=== PATIENT | male | born 2000 | race American Indian/Alaskan Native ===

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

== ENCOUNTER 2018-11-03 10:40 | Emergency (ER) | payer BC ==
[2018-11-03 10:49] VITALS: BP 133/44
[2018-11-03] MEDS ORDERED: BOOSTRIX IM ONE (11:43)
--- NOTE | 2018-11-03 11:49 | Emergency Department Report ---
HPI - General Chief Complaint: Eye Problems Time Seen by Provider: 11/03/18 11:33 - HPI HPI: 18-year-old -[place] male presents to the emergency department with 2 complaints. First, the patient slipped 1 week ago and cut open his right hand on a rock. He has been covering the area with gauze and taping his hand. He denies any pain to the hand at this point. He is unsure of his last tetanus vaccination. His second complaint is some right upper eyelid irritation and swelling since he pulled out an eyelash a week or so ago. He denies any vision change, eye drainage, eye redness. He denies any past medical history. ED Past Medical Hx - Past Medical History Previous Medical History?: No - Surgical History Past Surgical History?: No - Social History Smoking Status: Former Smoker Substance Use Type: None - Medications Home Medications: Home Medications Medication Instructions Recorded Confirmed Last Taken Type Cephalexin [Keflex] 500 mg PO BID #14 capsule 11/24/16 Unknown Rx Ibuprofen [Motrin] 600 mg PO Q8H PRN #25 tablet 11/24/16 Unknown Rx Sulfamethoxazole/Trimethoprim 1 each PO BID #14 tablet 11/24/16 Unknown Rx [Bactrim DS TAB] Erythromycin [Erythromycin Ophth 1 applicatio OD Q6H #1 tube 11/03/18 Unknown Rx Oint] ED Review of Systems ROS: Stated complaint: RT HAND PAIN/RT EYE Other details as noted in HPI Comment: All other systems reviewed and negative Constitutional: denies: chills, fever Eyes: other (upper eyelid irritation). denies: eye pain, vision change ENT: denies: ear pain, throat pain Respiratory: denies: cough, shortness of breath Cardiovascular: denies: chest pain, palpitations Gastrointestinal: denies: abdominal pain, vomiting Genitourinary: denies: dysuria, discharge Musculoskeletal: arthralgia. denies: back pain, joint swelling Skin: denies: rash, lesions Neurological: denies: headache, weakness Physical Exam - Physical Exam Vital Signs: Vital Signs 11/03/18 10:46 Temperature 97.6 F Pulse Rate 54 L Respiratory 18 Rate Blood Pressure 133/44 O2 Sat by Pulse 100 Oximetry Physical Exam: GENERAL: The patient is well-developed well-nourished. HEENT: Normocephalic. Atraumatic. Patient has moist mucous membranes. EYES: Extraocular motions are intact. There is some mild redness and swelling to the right upper eyelid. NECK: Supple. Trachea is midline. CHEST/LUNGS: Clear to auscultation. There is no respiratory distress noted. HEART/CARDIOVASCULAR: Regular. There is no tachycardia. There is no obvious murmur. ABDOMEN:There is no abdominal distention. SKIN: Skin is warm and dry. There is a healing laceration between the second and third fingers. There is a callus to the palm just proximal to this laceration. NEURO: The patient is awake, alert, and oriented. The patient is cooperative. The patient has no focal neurologic deficits. The patient has normal speech. MUSCULOSKELETAL: There is no tenderness or deformity. There is no limitation range of motion. There is no evidence of acute injury. Radial pulses +2 over 4 and capillary refill less than 2 seconds to the affected right hand and wrist. ED Course Vital Signs 11/03/18 10:46 Temperature 97.6 F Pulse Rate 54 L Respiratory 18 Rate Blood Pressure 133/44 O2 Sat by Pulse 100 Oximetry ED Medical Decision Making - Medical Decision Making The patient cut his right hand about 1 week ago and is just now coming in to be seen. He has been taping it and keeping it closed and upon examination the laceration appears to be approximated and healing. There is a heart size callus to the palm just below this laceration which is where the patient has some mild discomfort. He has full range of motion and is neurovascularly intact. The patient has complains of some right upper eyelid irritation. This could be some mild blepharitis. The patient has been given a prescription for erythromycin ointment and a referral for ophthalmology. - Differential Diagnosis blepharitis, stye, fracture, laceration, abrasion Critical Care Time: No Critical care attestation.: If time is entered above; I have spent that time in minutes in the direct care of this critically ill patient, excluding procedure time. ED Disposition Clinical Impression: Blepharitis of eyelid of right eye Qualifiers: Blepharitis type: unspecified type Eyelid: upper Qualified Code(s): H01.001 - Unspecified blepharitis right upper eyelid Injury of right hand Qualifiers: Encounter type: initial encounter Qualified Code(s): S69.91XA - Unspecified injury of right wrist, hand and finger(s), initial encounter Disposition: TO HOME OR SELFCARE Is pt being admited?: No Condition: Stable Instructions: Blepharitis (ED), Arthralgia (ED) Additional Instructions: Please follow up with a primary care physician. I'm getting a referral for a local senior lead software engineer, Dr. Latham, to follow up regarding your right upper eyelid redness and irritation. I am also giving you a referral for a local orthopedist, Dr. Beasley, to follow up regarding your right hand pain if necessary. Return to the emergency Department with any worsening of your symptoms or any acute distress. Prescriptions: Erythromycin [Erythromycin Ophth Oint] 1 applicatio OD Q6H #1 tube Referrals: VALERI LATHAM MD [Staff Physician] - 3-5 Days [facility] [Outside] - 3-5 Days GENA BEASLEY MD [Staff Physician] - 3-5 Days Forms: Work/School Release Form(ED) Time of Disposition: 11:49
== END 2018-11-03 12:17 | disposition home or self-care (01) ==
LOC: ED 10:40
DX: S69.91XA Unspecified injury of right wrist, hand and finger(s), initial encounter (principal); H01.001 Unspecified blepharitis right upper eyelid; W01.0XXA Fall on same level from slipping, tripping and stumbling without subsequent striking against object, initial encounter; Y93.89 Activity, other specified; Y92.89 Other specified places as the place of occurrence of the external cause; Y99.8 Other external cause status
CPT/HCPCS: 90471; 90715

== ENCOUNTER 2020-08-02 06:46 | Emergency (ER) | payer BC | END 2020-08-02 07:15 | disposition left against medical advice (07) | LOC: ED 06:46 | DX: R06.00 Dyspnea, unspecified (principal); Z53.21 Procedure and treatment not carried out due to patient leaving prior to being seen by health care provider ==

== ENCOUNTER 2020-08-02 18:06 | Emergency (ER) | payer BC ==
[2020-08-02 18:25] VITALS: BP 145/64
[2020-08-02 18:46] LABS: Basophils % (Auto) 0.3 % (0.0-1.8); Eosinophils # (Auto) 0.1 K/mm3 (0.0-0.4); Eosinophils % (Auto) 0.7 % (0.0-4.3); Hematocrit 41.2 % (35.5-45.6); Lymphocytes # (Auto) 1.6 K/mm3 (1.2-5.4); Lymphocytes % (Auto) 10.9 % (13.4-35.0); Mean Corpuscular HGB Conc 34 % (32-34); Mean Corpuscular Volume 86 fl (84-94); Monocytes # (Auto) 0.8 K/mm3 (0.0-0.8); Monocytes % (Auto) 5.2 % (0.0-7.3); Platelet Count 127 K/mm3 (140-440); Red Blood Count 4.77 M/mm3 (3.65-5.03); Red Cell Distribution Width 13.4 % (13.2-15.2)
[2020-08-02 19:07] LABS: Alanine Aminotransferase 20 units/L (7-56); Albumin 4.1 g/dL (3.9-5); Blood Urea Nitrogen 15 mg/dL (9-20); Hemolysis Index 13
[2020-08-02 19:09] LABS: BUN/Creatinine Ratio 21
--- NOTE | 2020-08-02 20:02 | Emergency Department Report ---
ED General Adult HPI - General Chief complaint: Dyspnea/Respdistress Stated complaint: CELESTINE Source: patient Mode of arrival: Ambulatory Limitations: No Limitations - History of Present Illness Initial comments: Patient is a 19-year-old -[place] male with a history of hypertension who presents to the ED with complaint of acute onset diffuse muscle spasm of his back, his chest wall and upper and lower extremities bilaterally for the last 2 days, worse in the last 12 hours. 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 Patient states that his symptoms got worse in the last 12 hours such that when he woke up he was unable to move because of diffuse muscle spasm of his chest and his back as well as his extremities. Patient denies shortness of breath, dizziness, syncope, fever, chills, nausea, vomiting, traumatic injury, neck pain, change in vision, seizures or palpitations, abdominal pain, diarrhea or cough. MD Complaint: Muscle spasms -: Sudden, hour(s) (12) Location: back, upper extremity, lower extremity Radiation: non-radiation Severity scale (0 -10): 6 Quality: aching, sharp Consistency: constant Improves with: none Worsens with: none Associated Symptoms: denies other symptoms. denies: confusion, chest pain, cough, diaphoresis, fever/chills, loss of appetite, malaise, nausea/vomiting, rash, seizure, shortness of breath, syncope, weakness Treatments Prior to Arrival: none - Related Data Previous Rx's Medication Instructions Recorded Last Taken Type Cephalexin [Keflex] 500 mg PO BID #14 capsule 11/24/16 Unknown Rx Ibuprofen [Motrin] 600 mg PO Q8H PRN #25 tablet 11/24/16 Unknown Rx Sulfamethoxazole/Trimethoprim 1 each PO BID #14 tablet 11/24/16 Unknown Rx [Bactrim DS TAB] Erythromycin [Erythromycin Ophth 1 applicatio OD Q6H #1 tube 11/03/18 Unknown Rx Oint] Ibuprofen [Motrin] 800 mg PO Q8HR PRN #30 tablet 01/29/20 Unknown Rx Cyclobenzaprine [Flexeril] 10 mg PO TID PRN #24 tablet 08/02/20 Unknown Rx Ibuprofen [Motrin] 800 mg PO Q8HR PRN #30 tablet 08/02/20 Unknown Rx Allergies Allergy/AdvReac Type Severity Reaction Status Date / Time No Known Allergies Allergy Verified 11/03/18 10:46 ED Review of Systems ROS: Stated complaint: CELESTINE Other details as noted in HPI Constitutional: denies: chills, fever Eyes: denies: eye pain, eye discharge, vision change ENT: denies: ear pain, throat pain Respiratory: denies: cough, shortness of breath, wheezing Cardiovascular: denies: chest pain, palpitations Endocrine: no symptoms reported Gastrointestinal: denies: abdominal pain, nausea, vomiting, diarrhea Genitourinary: denies: urgency, dysuria Musculoskeletal: back pain, arthralgia, myalgia. denies: joint swelling Skin: denies: rash, lesions Neurological: denies: headache, weakness, paresthesias Psychiatric: denies: anxiety, depression Hematological/Lymphatic: denies: easy bleeding, easy bruising ED Past Medical Hx - Past Medical History Previous Medical History?: Yes Hx Hypertension: Yes - Social History Smoking Status: Former Smoker Substance Use Type: None - Medications Home Medications: Home Medications Medication Instructions Recorded Confirmed Last Taken Type Cephalexin [Keflex] 500 mg PO BID #14 capsule 11/24/16 Unknown Rx Ibuprofen [Motrin] 600 mg PO Q8H PRN #25 tablet 11/24/16 Unknown Rx Sulfamethoxazole/Trimethoprim 1 each PO BID #14 tablet 11/24/16 Unknown Rx [Bactrim DS TAB] Erythromycin [Erythromycin Ophth 1 applicatio OD Q6H #1 tube 11/03/18 Unknown Rx Oint] Ibuprofen [Motrin] 800 mg PO Q8HR PRN #30 tablet 01/29/20 Unknown Rx Cyclobenzaprine [Flexeril] 10 mg PO TID PRN #24 tablet 08/02/20 Unknown Rx Ibuprofen [Motrin] 800 mg PO Q8HR PRN #30 tablet 08/02/20 Unknown Rx ED Physical Exam - General Limitations: No Limitations General appearance: alert, in no apparent distress - Head Head exam: Present: atraumatic, normocephalic, normal inspection - Eye Eye exam: Present: normal appearance, PERRL, EOMI Pupils: Present: normal accommodation - ENT ENT exam: Present: normal exam, normal orophraynx, mucous membranes moist, TM's normal bilaterally, normal external ear exam - Neck Neck exam: Present: normal inspection, full ROM - Respiratory Respiratory exam: Present: normal lung sounds bilaterally, chest wall tenderness (Mild diffuse chest wall tenderness). Absent: respiratory distress, wheezes, accessory muscle use, decreased breath sounds, prolonged expiratory - Cardiovascular Cardiovascular Exam: Present: regular rate, normal rhythm. Absent: systolic murmur, diastolic murmur, rubs, gallop - GI/Abdominal GI/Abdominal exam: Present: soft, normal bowel sounds. Absent: tenderness, guarding, rebound, hyperactive bowel sounds, hypoactive bowel sounds, organomegaly - Extremities Exam Extremities exam: Present: normal inspection, full ROM, normal capillary refill - Back Exam Back exam: Present: normal inspection, full ROM, tenderness (Palpable mild lumbosacral paraspinal musculoskeletal tenderness), muscle spasm, paraspinal tenderness. Absent: CVA tenderness (L) - Neurological Exam Neurological exam: Present: alert, oriented X3, CN II-XII intact, normal gait, reflexes normal - Psychiatric Psychiatric exam: Present: normal affect, normal mood - Skin Skin exam: Present: warm, dry, intact, normal color. Absent: rash ED Course Vital Signs 08/02/20 08/02/20 18:23 18:24 Temperature 98.2 F 98.2 F Pulse Rate 63 70 Respiratory 16 18 Rate Blood Pressure 145/64 O2 Sat by Pulse 99 96 Oximetry ED Medical Decision Making - Lab Data Result diagrams: 08/02/20 18:34 08/02/20 18:34 - Medical Decision Making This is a 19-year-old -[place] male with a history of hypertension who presents to the ED with complaint of acute onset diffuse muscle spasm of his back, his chest wall and upper and lower extremities bilaterally for the last 2 days, worse in the last 12 hours. 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 Patient states that his symptoms got worse in the last 12 hours such that when he woke up he was unable to move because of diffuse muscle spasm of his chest and his back as well as his extremities. In the ED, patient is alert and oriented x3 and is not in any distress with normal vital signs. Chest x-ray shows no acute cardiopulmonary abnormalities or pneumonitis. Lab test results were reviewed and are all nonactionable except for acute leukocytosis of 14,600. Patient will discharge home on muscle relaxants and pain medications and advised to follow- up with his primary care physician in 7 to 10 days for reevaluation or return to the ED immediately if symptoms get worse. - Differential Diagnosis Muscle spasm; muscle strain; influenza; Critical care attestation.: If time is entered above; I have spent that time in minutes in the direct care of this critically ill patient, excluding procedure time. ED Disposition Clinical Impression: Spasm of thoracic back muscle, Muscle strain of anterior chest wall Disposition: - TO HOME OR SELFCARE Is pt being admited?: No Does the pt Need Aspirin: No Condition: Stable Instructions: Muscle Cramps and Spasms, [id number], Muscle Strain, [id number] Additional Instructions: Take medication with food, drink plenty of fluids and follow-up with your primary care physician in 7 to 10 days for reevaluation. Return to the ED immediately if symptoms get worse. Prescriptions: Cyclobenzaprine [Flexeril] 10 mg PO TID PRN #24 tablet PRN Reason: Muscle Spasm Ibuprofen [Motrin] 800 mg PO Q8HR PRN #30 tablet PRN Reason: Pain , Severe (7-10) Referrals: [facility] [Provider Group] - 3-5 Days Forms: Work/School Release Form(ED) Time of Disposition: 19:59 Print Language: SLOVAK
--- NOTE | 2020-08-02 20:57 | XRay Report ---
CHEST 2 VIEWS INDICATION / CLINICAL INFORMATION: SOB. COMPARISON: 01/29/2020 FINDINGS: SUPPORT DEVICES: None. HEART / MEDIASTINUM: No significant abnormality. LUNGS / PLEURA: No significant pulmonary or pleural abnormality. No pneumothorax. ADDITIONAL FINDINGS: No significant additional findings. IMPRESSION: 1. No acute findings. Signer Name: Fred Judd MD Signed: 08/02/2020 8:53 PM Workstation Name: [id number]
== END 2020-08-02 20:37 | disposition home or self-care (01) ==
LOC: ED 18:06
DX: S29.011A Strain of muscle and tendon of front wall of thorax, initial encounter (principal); M62.838 Other muscle spasm; I10 Essential (primary) hypertension; Z87.891 Personal history of nicotine dependence; Z79.1 Long term (current) use of non-steroidal anti-inflammatories (NSAID); Z79.2 Long term (current) use of antibiotics; Z79.899 Other long term (current) drug therapy; X58.XXXA Exposure to other specified factors, initial encounter; Y93.89 Activity, other specified; Y92.89 Other specified places as the place of occurrence of the external cause; Y99.8 Other external cause status
CPT/HCPCS: 36415; 71046; 80053; 85025